=== PATIENT | male | born 1970 | race Two or more races ===

== ENCOUNTER 2018-04-20 16:51 | Emergency (ER) | payer SELFPAY ==
[~2018-04-20] VITALS: Ht 165.1 cm; Wt 68.0 kg
--- NOTE | 2018-04-20 17:22 | RAD ---
CT head without intravenous contrast History: Right arm weakness and numbness, slurred speech. Comparison: None. Technique: Axial images are obtained of the head from the skull base through the vertex without IV contrast. Exposure: One or more of the following individualized dose reduction techniques were utilized for this examination: 1. Automated exposure control 2. Adjustment of the mA and/or kV according to patient size 3. Use of iterative reconstruction technique Findings: Centered at white matter of left frontal lobe, there is a relatively low-attenuation mass with rim of intermediate attenuation and surrounding vasogenic edema. Mass is estimated to measure about 3 cm maximum dimension. There is only mild local mass effect upon the left lateral ventricle. No obvious acute ischemic infarction is identified. No acute intracranial hemorrhage is appreciated. There is no midline shift of the septum pellucidum . Basilar cisterns are patent. Bone windows demonstrate no acute calvarial abnormality. The visualized paranasal sinuses appear clear. Impression: 1. Low-attenuation mass involving the left frontal region with surrounding white matter edema. Recommend further evaluation with MR brain with intravenous contrast. 2. Results were called to the referring physician, Dr. Henry, at 1718 hours. Electronically signed by: Gume Pearl MD (04/20/2018 5:18 PM) [facility]
[2018-04-20 17:29] LABS: BASO % 1 % (0-3); EOS % 1 % (0-3); HEMOGLOBIN 15.6 g/dL (13.0-17.5); LYMPH % 26 % (24-48); MEAN CORPUSCULAR HEMOGLOBIN 30 pg (25-35); MEAN CORPUSCULAR HGB CONC 35 g/dL (31-37); MEAN CORPUSCULAR VOLUME 86 fL (79-100); MONO # 0.5 x10^3/uL (0.0-1.1); MONO % 7 % (0-9); NEUT # 5.2 x10^3uL (1.8-7.7); NEUT % 67 % (31-73); PLATELET COUNT 308 x10^3/uL (140-400); RED BLOOD COUNT 5.23 x10^6/uL (4.30-5.70); RED CELL DISTRIBUTION WIDTH 13.6 % (11.5-14.5); WHITE BLOOD COUNT 7.9 x10^3/uL (4.0-11.0)
[2018-04-20] MEDS ORDERED: DEXAMETHASONE SOD PHOS 4 MG/ML VIAL IV ONE (17:45)
[2018-04-20 17:49] LABS: ALBUMIN 3.6 g/dL (3.4-5.0); ALBUMIN/GLOBULIN RATIO 1.1 (1.0-1.7); CREATININE 1.3 mg/dL (0.7-1.3); GFR 59.4; POTASSIUM 3.7 mmol/L (3.5-5.1); TOTAL BILIRUBIN 0.3 mg/dL (0.2-1.0)
--- NOTE | 2018-04-20 18:01 | PHYS DOC ---
Past History Past Medical History: No Pertinent History Past Surgical History: No Surgical History Alcohol Use: Occasionally Drug Use: None Adult General Chief Complaint Chief Complaint: SLURRED SPEECH HPI HPI 32 days as a constant problem that gradually getting worse. Patient states yesterday he had problem with his speech and could not talk like his usual event he getting . Patient also complaining of gradual onset of right lower extremity heaviness since yesterday and states he had problem with his balance and had been leaning to right side while walking. Patient complaining of mild headache for the last 3 days and decrease of vision in right eye. Patient denies head injury, nausea and vomiting, fever and chills, neck pain, chest pain and shortness of breath, history of the same problem. Review of Systems Review of Systems Constitutional: Denies fever or chills [] Eyes: Reports change in visual acuity, denies redness, or eye pain [] HENT: Denies nasal congestion or sore throat [] Respiratory: Denies cough or shortness of breath [] Cardiovascular: No additional information not addressed in HPI [] GI: Denies abdominal pain, nausea, vomiting, bloody stools or diarrhea [] : Denies dysuria or hematuria [] Musculoskeletal: Denies back pain or joint pain [] Integument: Denies rash or skin lesions [] Neurologic: Reports headache, focal weakness or sensory changes [] Endocrine: Denies polyuria or polydipsia [] All other systems were reviewed and found to be within normal limits, except as documented in this note. Current Medications Current Medications Current Medications Medications (Trade) Dose Ordered Sig/Esthela Start Time Stop Time Status Last Admin Dose Admin Dexamethasone Sodium Phosphate (Decadron) 4 mg 1X ONCE 04/20/18 17:45 04/20/18 17:46 DC 04/20/18 17:44 4 MG Allergies Allergies Allergies Coded Allergies Type Severity Reaction Last Updated Verified No Known Drug Allergies 04/20/18 No Physical Exam Physical Exam Constitutional: Well developed, well nourished, mild distress, non-toxic appearance. [] HENT: Normocephalic, atraumatic, bilateral external ears normal, oropharynx moist, no oral exudates, nose normal, decrease of visual field in right eye. [] Eyes: PERRLA, EOMI, conjunctiva normal, no discharge. [] Neck: Normal range of motion, no tenderness, supple, no stridor. [] Cardiovascular:Heart rate regular rhythm, no murmur [] Lungs & Thorax: Bilateral breath sounds clear to auscultation [] Abdomen: Bowel sounds normal, soft, no tenderness, no masses, no pulsatile masses. [] Skin: Warm, dry, no erythema, no rash. [] Back: No tenderness, no CVA tenderness. [] Extremities: No tenderness, no cyanosis, no clubbing, ROM intact, no edema. [] Neurologic: Alert and oriented X 3, subjective paresthesia of right upper and lower extremity, decrease of muscle strength of right upper and lower extremity able to hold his upper and lower extremity for 10 and 5 seconds, NIH scale of 2. Psychologic: Affect normal, judgement normal, mood normal. [] Current Patient Data Vital Signs Vital Signs Date Time Temp Pulse Resp B/P (MAP) Pulse Ox O2 Delivery O2 Flow Rate FiO2 04/20/18 17:09 98.9 91 16 98 Room Air Lab Results Laboratory Tests Test 04/20/18 17:00 04/20/18 17:01 Glucose (Fingerstick) 179 mg/dL (70-99) H White Blood Count 7.9 x10^3/uL (4.0-11.0) Red Blood Count 5.23 x10^6/uL (4.30-5.70) Hemoglobin 15.6 g/dL (13.0-17.5) Hematocrit 45.0 % (39.0-53.0) Mean Corpuscular Volume 86 fL (79-100) Mean Corpuscular Hemoglobin 30 pg (25-35) Mean Corpuscular Hemoglobin Concent 35 g/dL (31-37) Red Cell Distribution Width 13.6 % (11.5-14.5) Platelet Count 308 x10^3/uL (140-400) Neutrophils (%) (Auto) 67 % (31-73) Lymphocytes (%) (Auto) 26 % (24-48) Monocytes (%) (Auto) 7 % (0-9) Eosinophils (%) (Auto) 1 % (0-3) Basophils (%) (Auto) 1 % (0-3) Neutrophils # (Auto) 5.2 x10^3uL (1.8-7.7) Lymphocytes # (Auto) 2.0 x10^3/uL (1.0-4.8) Monocytes # (Auto) 0.5 x10^3/uL (0.0-1.1) Eosinophils # (Auto) 0.0 x10^3/uL (0.0-0.7) Basophils # (Auto) 0.0 x10^3/uL (0.0-0.2) Prothrombin Time 10.4 SEC (9.4-11.4) Prothrombin Time INR 1.0 (0.9-1.1) PTT 23 SEC (23-33) Sodium Level 138 mmol/L (136-145) Potassium Level 3.7 mmol/L (3.5-5.1) Chloride Level 105 mmol/L (98-107) Carbon Dioxide Level 27 mmol/L (21-32) Anion Gap 6 (6-14) Blood Urea Nitrogen 13 mg/dL (8-26) Creatinine 1.3 mg/dL (0.7-1.3) Estimated GFR (Cockcroft-Gault) 59.4 BUN/Creatinine Ratio 10 (6-20) Glucose Level 183 mg/dL (70-99) H Calcium Level 9.0 mg/dL (8.5-10.1) Magnesium Level 2.0 mg/dL (1.8-2.4) Total Bilirubin 0.3 mg/dL (0.2-1.0) Aspartate Amino Transferase (AST) 18 U/L (15-37) Alanine Aminotransferase (ALT) 16 U/L (16-63) Alkaline Phosphatase 52 U/L (46-116) Creatine Kinase 150 U/L (39-308) Creatine Kinase MB (Mass) 0.5 ng/mL (0.0-3.6) Creatine Kinase MB Relative Index 0.3 % (0-4) Troponin I Quantitative < 0.017 ng/mL (0-0.055) Total Protein 7.0 g/dL (6.4-8.2) Albumin 3.6 g/dL (3.4-5.0) Albumin/Globulin Ratio 1.1 (1.0-1.7) EKG EKG EKG interpreted by me. EKG at 1652 showed normal sinus rhythm at rate of 84, incomplete right bundle-branch block, no acute ST and T-wave abnormalities[] Radiology/Procedures Radiology/Procedures [][place] [id number] IMAGING REPORT Signed PATIENT: ELZA MYERS ACCOUNT: [id number] : 1970 LOCATION: ER AGE: 47 SEX: M EXAM STATUS: PRE ER ORD. PHYSICIAN: DIANE COLLIER MD REASON: focal neuro deficit PROCEDURE: CT HEAD WO CONTRAST CT head without intravenous contrast History: Right arm weakness and numbness, slurred speech. Comparison: None. Technique: Axial images are obtained of the head from the skull base through the vertex without IV contrast. Exposure: One or more of the following individualized dose reduction techniques were utilized for this examination: 1. Automated exposure control 2. Adjustment of the mA and/or kV according to patient size 3. Use of iterative reconstruction technique Findings: Centered at white matter of left frontal lobe, there is a relatively low-attenuation mass with rim of intermediate attenuation and surrounding vasogenic edema. Mass is estimated to measure about 3 cm maximum dimension. There is only mild local mass effect upon the left lateral ventricle. No obvious acute ischemic infarction is identified. No acute intracranial hemorrhage is appreciated. There is no midline shift of the septum pellucidum . Basilar cisterns are patent. Bone windows demonstrate no acute calvarial abnormality. The visualized paranasal sinuses appear clear. Impression: 1. Low-attenuation mass involving the left frontal region with surrounding white matter edema. Recommend further evaluation with MR brain with intravenous contrast. 2. Results were called to the referring physician, Dr. Collier, at 1718 hours. Electronically signed by: Gume Knutson MD (04/20/2018 5:18 PM) [facility] DICTATED AND SIGNED BY: GUME KNUTSON MD DATE: 04/20/18 9523 CC: DIANE COLLIER MD; PCP,UNKNOWN ~ Course & Med Decision Making Course & Med Decision Making Pertinent Labs and Imaging studies reviewed. (See chart for details) Evaluation of patient in ER showed 47-year-old male patient with gradual onset of right-sided numbness and weakness and problem with vision for the last 2 days. Patient had NIH scale of 2 with decrease of right peripheral vision and subjective paresthesia. CT of head showed possible 3 cm left frontal lobe mass. Patient treated with dexamethasone and Keppra in ER and plan to transfer to [facility]. Patient and his family informed about plan of care. Dr. Molina accepted transfer to [facility] at 1739. [] Dragon Disclaimer Dragon Disclaimer This electronic medical record was generated, in whole or in part, using a voice recognition dictation system. Departure Departure: Impression: Primary Impression: Left frontal lobe mass Additional Impressions: Acute right-sided weakness Slurred speech Paresthesia Tobacco abuse Disposition: 02 XFER SHT-TRM HOSP (at 1740 to [facility]) Condition: GUARDED Referrals: PCP,UNKNOWN (PCP) Problem Qualifiers DIANE COLLIER MD Apr 20, 2018 18:01
--- NOTE | 2018-04-20 18:08 | EKG ---
[address] [address] Test Date: 2018-04-20 Test Time: 16:53:54 Pat Name: ELZA MYERS Department: Room: Gender: M Project Controller: DESTINY : 1970 Requested By: DIANE COLLIER Order Number: [id number] Reading MD: Measurements Intervals [place] Rate: 84 P: 51 [place]: 134 QRS: 14 QRSD: 90 T: 39 QT: 320 QTc: 381 Interpretive Statements SINUS RHYTHM INCOMPLETE RIGHT BUNDLE BRANCH BLOCK QRS(T) CONTOUR ABNORMALITY CONSIDER ANTEROLATERAL MYOCARDIAL DAMAGE POSSIBLY ABNORMAL ECG RI6.01 No previous ECG available for comparison
[2018-04-20 18:24] LABS: BACTERIA,URINE 0 /HPF (0-FEW); BILIRUBIN,URINE NEG (NEG); CLARITY,URINE CLEAR; COLOR,URINE YELLOW; GLUCOSE,URINE NEG (NEG); NITRITE,URINE NEG (NEG); RBC,URINE 0 /HPF (0-2); SQUAMOUS EPITHELIAL CELL,UR FEW /LPF; UROBILINOGEN,URINE 0.2 mg/dL (0.2 mg/dL); WBC,URINE OCC /HPF (0-4)
[2018-04-20 18:27] LABS: BARBITURATES NEG (NEG); BENZODIAZEPINES NEG (NEG); CANNABINOIDS NEG (NEG); COCAINE NEG (NEG); METHADONE NEG (NEG); OPIATES NEG (NEG); PHENCYCLIDINE NEG (NEG)
[2018-04-20 18:28] LABS: AMPHETAMINE/METHAMPHETAMINE NEG (NEG)
[2018-04-20 18:30] VITALS: BP 135/56
[2018-04-20] MEDS ORDERED: IV NORMAL SALINE 100ML 100 ML ONE (19:10)
[2018-04-20] MEDS ORDERED: levETIRAcetam 500 MG/5 ML VIAL IV ONE (19:11)
== END 2018-04-20 19:35 | disposition short-term general hospital (02) ==
LOC: ER 16:51
DX: R22.0 Localized swelling, mass and lump, head (principal); R53.1 Weakness; R47.81 Slurred speech; R20.2 Paresthesia of skin; H54.7 Unspecified visual loss; Z72.0 Tobacco use
CPT/HCPCS: 36415; 70450; 80053; 80307; 81001; 82553; 82947; 83735; 84484; 85025; 85610; 85730; 93005; 96365; 96375; 99285; J1100; J1953; G0479